=== PATIENT | female | born 1945 | race Caucasian/White ===

== ENCOUNTER → 2018-05-16 12:06 | Outpatient (CLI) | payer MEDICARE, SELFPAY ==
[2015-11-21 16:10] VITALS: BMI 28.4
[2018-05-16 16:10] LABS: BUN 10 mg/dL (7-18); Creatinine, Serum 1.08 mg/dL (0.55-1.02); Glucose 92 mg/dL (74-106)
[2018-05-16 16:11] LABS: Anion Gap 11 (5-15); BUN/Creat Ratio 9.3 RATIO (10-20); Calcium,Total 9.3 mg/dL (8.5-10.1); Chloride 104 mmol/L (98-107); EST Glomerular Filtration Rate 53 mL/min (>60); Est Glom Filt Rate - Afr Amer 64 mL/min (>60); Potassium 4.5 mmol/L (3.5-5.1); Sodium Level 141 mmol/L (136-145); Thyroid Stim Hormone (TSH) 0.99 uIU/mL (0.358-3.74)
[2018-05-16 16:18] LABS: Absolute Lymphocyte Count 2.32 X10^3/ul (0.83-4.51); Absolute Neutrophil Count 4.8 X10^3/uL (2.0-7.7); Basophil# 0.05 X10^3/uL; Basophil% 0.6 % (0-1); Eosinophil# 0.09 X10^3/uL; Eosinophils% 1.1 % (0-5); Hematocrit 45.7 % (37-47); Hemoglobin 15.3 g/dl (12.0-15.0); Lymphocyte # 2.32 X10^3/ul (4.0); Lymphocyte % 29.4 % (19-41); Mean Corp Hgb Conc 33.5 g/gl (32-36); Mean Corpuscular Hgb 32.8 pg (27.0-32.0); Mean Corpuscular Volume 97.9 fL (81-99); Mean Platelet Vol. 10.9 fl (6.2-12.0); Monocyte# 0.62 X10^3/uL; Monocyte% 7.9 % (0-10); Neutrophil # 4.78 X10^3/uL (2.7-7.7); Neutrophil % 60.7 % (47-70); Platelet Count 340 K/mm3 (150-450); RBC Distribution Width CV 14.2 % (11.6-14.6); RBC Distribution Width SD 49.8 fl (35.1-43.9); Red Blood Count 4.67 M/mm3 (4.2-5.4); White Blood Count 7.9 K/mm3 (4.4-11.0)
[2018-05-16 16:21] LABS: POSITIVE COUNT NO; POSITIVE DIFFERENTIAL NO; POSITIVE MORPHOLOGY NO
== END ==
PROVIDERS: Family Provider Family Medicine; PCP Family Medicine; Referring Provider Family Medicine; Visit Provider Family Medicine
DX: F32.9 Major depressive disorder, single episode, unspecified (principal)
CPT/HCPCS: 36415; 80048; 84443; 85025

== ENCOUNTER → 2018-07-19 10:33 | Outpatient (CLI) | payer MEDICARE, SELFPAY ==
--- NOTE | 2018-07-19 10:37 | BI_ITS ---
MAMMOGRAPHY - BILATERAL SCREENING 3-D TOMOSYNTHESIS REASON FOR EXAM: Female, 72 years old. Bilateral Screening 3-D tomosynthesis PERTINENT HISTORY: No significant family history. TECHNIQUE: 2-D mammograms and 3-D Tomosynthesis of the breast (s) were performed. CAD was performed. COMPARISON: None. FINDINGS: The breast composition is almost entirely fat. Scattered benign calcifications are seen. No dense spiculated masses or suspicious microcalcifications are identified. No architectural distortion is identified. There is no skin thickening or retraction. There has been no significant change since the prior study. BI/SCREENING MAMM (CAD), BILAT IMPRESSION: No mammographic signs of malignancy. Routine yearly mammograms recommended. ASSESSMENT CATEGORY: BIRADS Category 1: Negative. A letter regarding these results will be sent to the patient by the facility within 30 days. FOLLOW UP RECOMMENDATION: Yearly follow up mammogram recommended. (A) Approximately 10% of breast cancers are not detected by mammography. A normal mammogram should not delay biopsy of a clinically suspicious abnormality. Electronically Signed: Vega Herndon MD at 11:44 EDT , Service support ,
== END ==
PROVIDERS: Family Provider Family Medicine; PCP Family Medicine; Referring Provider Family Medicine; Visit Provider Family Medicine
DX: Z12.31 Encounter for screening mammogram for malignant neoplasm of breast (principal)
CPT/HCPCS: 77063; 77067

== ENCOUNTER → 2018-12-19 06:00 | Outpatient (REF) | payer MEDICARE, SELFPAY ==
[2018-12-19 08:15] LABS: Color, Urine Yellow (Yellow); Glucose, Dipstick Normal (Normal); Ketone-Dipstick Negative (Negative); Leukocyte Esterase-Dipstick 100 /ul (Negative); Nitrite-Dipstick Positive (Negative); Occult Blood-Urine Negative /ul (Negative); Protein-Dipstick Negative (Negative); Urine Bilirubin Dipstick Negative (Negative); Urine Clarity Sl. Cloudy (Clear); Urine Urobilinogen Normal (Normal)
== END ==
PROVIDERS: Visit Provider Family Medicine
DX: R46.89 Other symptoms and signs involving appearance and behavior (principal)
CPT/HCPCS: 81002; 87077; 87086; 87088; 87186

== ENCOUNTER → 2019-01-17 16:00 | Outpatient (REF) | payer MEDICARE, SELFPAY ==
[2019-01-18 07:50] LABS: Mucous, Urine 0 SEEN /hpf (<or=2+); Red Blood Cells-Urine 0 SEEN /hpf (0-5)
[2019-01-18 08:10] LABS: Color, Urine Yellow (Yellow); Glucose, Dipstick Normal (Normal); Ketone-Dipstick Negative (Negative); Leukocyte Esterase-Dipstick 100 /ul (Negative); Nitrite-Dipstick Negative (Negative); Occult Blood-Urine Negative /ul (Negative); Protein-Dipstick 30 mg/dl (Negative); Urine Bilirubin Dipstick Negative (Negative); Urine Clarity Sl. Cloudy (Clear); Urine Urobilinogen Normal (Normal)
[2019-01-18 08:18] LABS: Bacteria 1+ /hpf (None Seen); Squamous Epithelial Cells - UA 0-5 SEEN /hpf (5-10); White Blood Cells 10-25 SEEN /hpf (0-5)
== END ==
PROVIDERS: Visit Provider Family Medicine
DX: R53.83 Other fatigue (principal); R50.9 Fever, unspecified; R46.89 Other symptoms and signs involving appearance and behavior
CPT/HCPCS: 81001; 87086

== ENCOUNTER → 2019-05-06 18:00 | Outpatient (REF) | payer MEDICARE, SELFPAY ==
[2019-05-07 08:13] LABS: Mucous, Urine 0 SEEN /hpf (<or=2+); Red Blood Cells-Urine 0 SEEN /hpf (0-5)
[2019-05-07 08:18] LABS: Color, Urine Yellow (Yellow); Glucose, Dipstick Normal (Normal); Ketone-Dipstick 5 mg/dl (Negative); Leukocyte Esterase-Dipstick 500 /ul (Negative); Nitrite-Dipstick Negative (Negative); Occult Blood-Urine Negative /ul (Negative); Protein-Dipstick 30 mg/dl (Negative); Specific Gravity, Urine 1.015 (1.002-1.030); Urine Bilirubin Dipstick Negative (Negative); Urine Clarity Cloudy (Clear); Urine Urobilinogen 1 mg/dl (Normal)
[2019-05-07 08:32] LABS: White Blood Cells 50-100 SEEN /hpf (0-5)
[2019-05-07 08:37] LABS: Amorphous Sediment 3+; Bacteria 3+ /hpf (None Seen); Squamous Epithelial Cells - UA 5-10 SEEN /hpf (5-10)
== END ==
LOC: OLS.BROOKB 18:00
PROVIDERS: PCP Family Medicine; Visit Provider Family Medicine
DX: N39.0 Urinary tract infection, site not specified (principal)
CPT/HCPCS: 81001; 87086; 87088

== ENCOUNTER → 2019-05-21 12:45 | Outpatient (CLI) | payer MEDICARE, SELFPAY ==
[2015-11-21 16:10] VITALS: BMI 28.4
--- NOTE | 2019-05-21 14:54 | SP.MBSS_ITS ---
PRIMARY / SECONDARY DIAGNOSIS: Dysphagia (R13.10) REFERRING PHYSICIAN: Dr. Uma Scott CURRENT DIET: Honey Thick Liquids/Puree Textures MENTAL STATUS: non-verbal; able to follow some 1-step commands with max cues RESPIRATORY STATUS: O2 via room air PREVIOUS MODIFIED BARIUM SWALLOW STUDY: N/A REASON FOR REFERRAL: Concerns for aspiration and decline in swallow function MEDICAL HISTORY: Pt is a 73/F with past medical history consisting of unspecified dementia without behavioral disturbance, major depressive disorder, and osteoarthritis. STUDY FINDINGS: Patient participated in a Modified Barium Swallow (MBS) study on 05/21/2019. locate technician was present for this evaluation. This study was recorded in the lateral view and images were sent to PACs for storage. The following consistencies were presented to this patient for analysis of oropharyngeal swallow function: thin liquid, nectar thick liquid, honey thick liquid, and pudding. Results of the MBS are as follows: PENETRATION / ASPIRATION SCALE (PALMA): 1 = does not enter airway 2 = enters airway/above vocal folds/ejected 3 = enters airway/above vocal folds/not ejected 4 = enters airway/contacts vocal folds/ejected 5 = enters airway/contacts vocal folds/not ejected 6 = enters airway/below vocal folds/ejected 7 = enters airway/below vocal folds/not ejected despite effort 8 = enters airway/below vocal folds/no effort PENETRATION / ASPIRATION SCALE (SCORE): 1) thin liquid via teaspoon = 1 2) thin liquid via teaspoon = 1 3) thin liquid via single sip from cup = 2 4) thin liquid via large sequential sip from cup = 8 5) [place] liquid via single sip from cup = 8 6) [place] thick liquid via large single sip from cup = 8 7) Honey thick liquid= 2 8) pudding = 1 IMPRESSION: moderate-severe oropharyngeal dysphagia (R13.12) ORAL PHASE CHARACTERIZED BY: LABIAL SEAL: escape beyond mid chin TONGUE CONTROL DURING BOLUS MANIPULATION: escape to lateral buccal cavity/floor of mouth BOLUS PREPARATION / MASTICATION: SOLID TEXTURES NOT TRIALED DUE TO PATIENT SAFETY CONCERNS BOLUS TRANSPORT / LINGUAL MOTION: repetitive/disorganized tongue motion ORAL RESIDUE: majority of bolus remaining PHARYNGEAL PHASE CHARACTERIZED BY: INITIATION OF PHARYNGEAL SWALLOW: bolus head in pyriforms at first hyoid excursion SOFT PALATE ELEVATION: no bolus between soft palate and pharyngeal wall LARYNGEAL ELEVATION: partial superior movement of thyroid cartilage/partial approximation of arytenoids cartilage to epiglottic petiole ANTERIOR HYOID EXCURSION: trace anterior movement EPIGLOTTIC MOVEMENT: partial epiglottic inversion LARYNGEAL VESTIBULE CLOSURE AT HEIGHT OF SWALLOW:incomplete laryngeal vestibule closure with narrow column of air/contrast in laryngeal vestibule PHARYNGEAL STRIPPING WAVE: pharyngeal stripping wave present / diminished PHARYNGOESOPHAGEAL SEGMENT OPENING: partial distension and partial duration; partial obstruction of flow TONGUE BASE RETRACTION:narrow column of contrast between tongue base and posterior pharyngeal wall PHARYNGEAL RESIDUE: majority of contrast within or on pharyngeal structures ESOPHAGEAL PHASE CHARACTERIZED BY: ESOPHAGEAL BOLUS CLEARANCE IN THE UPRIGHT POSITION: could not view DIET TEXTURE RECOMMENDATIONS: Will recommend a puree textured, honey thick liquid diet. COMPENSATORY STRATEGIES RECOMMENDED: Will recommend 1:1 supervised meals with cuing as needed, small bites/sips, cues for effortful double swallow, seated upright at 90 degrees during PO intake, remain upright for 30-60 minutes post meal (GERD precaution), medications with purees. INTERPRETATION OF RESULTS: Patient presents with moderate-severe oropharyngeal dysphagia (R13.12). Oral phase primarily marked by severe mastication inefficiency and suboptimal lingual control resulting in oral holding and premature bolus loss. Patient noted to move pudding texture around in mouth with repetitive tongue motion as if trying to figure out what to do with the bolus. Max cuing used to have patient swallow pudding texture with oral residue remaining. No solid textures trialed this date due to concerns for patient safety/choking. Pharyngeal phase primarily marked by delayed pharyngeal swallow onset timing resulting in spillage of liquids to the pyriforms upon hyoid excursion. Reduced laryngeal elevation and anterior hyoid excursion resulted in aspiration of thin and nectar thick liquids that was silent in nature. No effort made by the patient to clear aspirated liquids with coughing or throat clearing. Pharyngeal retention noted in the valleculae and pyriforms. Because silent aspiration was found, clinical assessment at bedside relying on identification of classic overt signs and symptoms of aspiration would be considered unreliable exclusively. Patient did have penetration with honey thick liquids that was ejected. The Patient has demonstrated significant difficulty following directions presented verbally one step at a time and cannot be expected to execute recommended strategies with enough consistency to facilitate improved airway protection without cues. RECOMMENDATIONS: Patient requires intensive skilled speech-language intervention targeting continued diet texture management, training and implementation of recommended compensatory strategies, training and implementation of recommended oropharyngeal strengthening exercises to facilitate improved swallow function though significant improvement questionable given the progressive nature of the patients swallow function with no clear etiology, and patient and caregiver training targeting meal preparation / thickened liquid preparation. Would strongly discourage advancement past honey thickened liquids without completion of a repeat modified barium swallow study due to the extent of aspirate identified that was SILENT in nature. In addition, would strongly consider a referral for further workup via neurologist given rapid changes in speech and swallowing? function as reported by patients speech-language pathologist Marysol present with the patient for MBS study. ADDITIONAL COMMENTS/RECOMMENDATIONS: Results and recommendations were discussed with the patient and patient's clinical speech-language pathologist immediately following MBS completion, with the patient's [employer]ING [employer] verbalizing understanding and agreement with all recommendations and education provided. Afia Chew M.A., [facility]-[employer] Speech Language Pathologist [id number] [place] [address] [email or web address] [phone]
== END ==
PROVIDERS: PCP Family Medicine; Referring Provider Family Medicine; Visit Provider Family Medicine
DX: R13.12 Dysphagia, oropharyngeal phase (principal)
CPT/HCPCS: 76000; 92611